=== PATIENT | female | born 1970 | race Two or more races ===

== ENCOUNTER 2019-12-06 13:07 | Emergency (ER) | payer OTHER, SELFPAY ==
[2019-12-06 13:18] VITALS: BP 115/74; PULSE 77; RESP 14; TEMP 36.4; O2SAT 100
--- NOTE | 2019-12-06 13:33 | ED.URI ---
HPI - URI/Sore Throat General Chief Complaint: Upper Respiratory Infection Stated Complaint: ear pain and scratchy throat Time Seen by Provider: 12/06/19 13:33 Source: patient and family Mode of arrival: ambulatory Limitations: no limitations History of Present Illness HPI Narrative: Patient presents with right ear pain. Patient states she has clear drainage from the ear at times. Patient has been using [id number] eardrops for pain which have not helped patient also states she is taking DayQuil for her respiratory symptoms which has not helped much. No fever no shortness of breath no chest pain normally healthy individual. Related Data Allergies Allergy/AdvReac Type Severity Reaction Status Date / Time No Known Allergies Allergy Verified 12/06/19 13:25 Review of Systems Review of Systems: Narrative: CONSTITUTIONAL: Denies chills, or sweats. Reports fever and generalized body aches EYES: Denies visual changes, redness, or discharge. ENT: Denies otalgia. Reports nasal congestion runny nose and sore throat CARDIOVASCULAR: Denies chest pain, palpitations, or edema. RESPIRATORY: Denies dyspnea. Reports occasional cough GASTROINTESTINAL: Denies abdominal pain, nausea, vomiting, or diarrhea. GENITOURINARY: Denies dysuria or hematuria. SKIN: Denies rash or itching. MUSCULOSKELETAL: Denies back pain, joint pain, or myalgia. Reports generalized body aches NEUROLOGIC: Denies headache, numbness, or weakness. PSYCHIATRIC: Denies anxiety or depression. PMFSH Comments At time of signature, agree with nursing past medical, surgical, social and family history. There is no relevant family history pertinent to the presenting complaint Exam Narrative: Exam Narrative: The patient is a well-developed, well-nourished in no acute distress. SKIN: Skin is warm and dry without erythema, swelling or exudate. There is good turgor. No tenting. HEAD: Atraumatic. Normocephalic. No temporal or scalp tenderness. EYES: Moist and bright. Sclera and conjunctivae normal. No discharge. PERRLA. Extraocular motions intact. Gross visual acuity intact. EARS: Pinna is normal shape and contour. Clear external auditory canals. Left TM pearly pierce with good cone of light, no erythema or suppuration. Bilateral cerumen noted no gross hearing deficit. Right TM opaque with moderate erythremia to canal NOSE: pink, moist mucosa with good air movement. Clear rhinorrhea without nasal flaring. Septum midline. Mouth: moist mucous membranes. THROAT; mild erythema noted to posterior oropharynx with moderate postnasal drainage. Without exudate or ulceration.. Uvula midline. Normal movement of soft palate. NECK: Supple and nontender with full range of motion without discomfort. No meningeal signs. LUNGS: Equal and bilateral breath sounds without wheezes, rales or rhonchi. CHEST: The chest wall is without retractions or use of accessory muscles. HEART: Has a regular rate and rhythm without murmur, gallops, click or rub. ABDOMEN: Soft, nontender with positive active bowel sounds. No rebound tenderness. EXTREMITIES: Without cyanosis, clubbing or edema. Equal 2+ distal pulses and 2 second capillary refill noted. NEUROLOGIC: alert, active, . The patient moves all extremities with normal muscle strength. Normal muscle tone is noted. Normal coordination is noted. NO focal neurological findings noted. Course Vital Signs Vital signs: Vital Signs Temperature 36.4 C 12/06/19 13:18 Pulse Rate 77 12/06/19 13:18 Respiratory Rate 14 12/06/19 13:18 Blood Pressure 115/74 12/06/19 13:18 Pulse Oximetry 100 12/06/19 13:18 Temperature 36.4 C 12/06/19 13:18 Pulse Rate 77 12/06/19 13:18 Respiratory Rate 14 12/06/19 13:18 Blood Pressure 115/74 12/06/19 13:18 Pulse Oximetry 100 12/06/19 13:18 MDM - URI/Sore Throat Differential Diagnosis Differential diagnosis: Likely upper respiratory infection, croup, otitis media, sinusitis, viral infection, bronchitis, i
== END 2019-12-06 13:42 | disposition home or self-care (01) ==
PROVIDERS: Emergency Provider Nurse Practitioner Family
DX: H66.91 Otitis media, unspecified, right ear (principal); J06.9 Acute upper respiratory infection, unspecified
CPT/HCPCS: 99213; G0463

== ENCOUNTER 2020-02-15 15:18 | Emergency (ER) | payer OTHER, SELFPAY ==
[2020-02-15 15:22] VITALS: BP 135/73; PULSE 72; RESP 16; TEMP 37.4; O2SAT 100
--- NOTE | 2020-02-15 15:36 | ED.EYEPROB ---
HPI - Eye Problem General Chief complaint: Eye Problems Stated complaint: right eye Time Seen by Provider: 02/15/20 15:29 Source: patient and RN notes reviewed Mode of arrival: ambulatory Limitations: no limitations History of Present Illness HPI Narrative: Patient presents today complaining of redness to her right eye that was noted this morning. Denies any recent illness, pain, itchiness, drainage from the eye, matting of the eyelashes. Denies vision changes. She has tried no [id number] interventions prior to arrival. Denies any recent coughing, sneezing, straining, constipation, heavy lifting. chief complaint: eye redness Related Data Home Medications Medication Instructions Recorded Confirmed No Home Medications 02/15/20 02/15/20 Allergies Allergy/AdvReac Type Severity Reaction Status Date / Time No Known Allergies Allergy Verified 02/15/20 15:33 Review of Systems Review of Systems: Narrative: CONSTITUTIONAL: Denies body aches, fever, chills, or sweats. EYES: Denies visual changes, or discharge.+ Right eye redness ENT: Denies rhinorrhea, congestion, sore throat, or otalgia. CARDIOVASCULAR: Denies chest pain, palpitations, or edema. RESPIRATORY: Denies cough or dyspnea. GASTROINTESTINAL: Denies abdominal pain, nausea, vomiting, or diarrhea. GENITOURINARY: Denies dysuria or hematuria. SKIN: Denies rash, itching, or wounds. MUSCULOSKELETAL: Denies back pain, joint pain, or myalgia. NEUROLOGIC: Denies headache, numbness, tingling, or weakness. PSYCH: Denies depression or anxiety. PMFSH Comments At time of signature, I have reviewed and agree with nursing past medical, surgical, social and family history unless otherwise noted. Please see nursing chart for further information. There is no relevant family history pertinent to the presenting complaint Exam Narrative: Exam Narrative: GENERAL: Well-appearing, well-nourished, and in no acute distress. HEAD: Normocephalic, atraumatic. EYES: EOMI. PERRL. Left eye normal. Lids and lashes normal bilaterally. Right lateral mild subconjunctival hemorrhage. ENT: Mucous membranes pink and moist. NECK: Normal AROM. CHEST: No respiratory distress. EXTREMITIES: Normal range of motion. No edema. SKIN: Warm, dry, no rash. Capillary refill normal. Normal skin turgor. NEURO: No focal deficits. Alert and oriented x3. Gait steady. PSYCH: Normal affect. No signs of depression or anxiety. Course Vital Signs Vital signs: Vital Signs Temperature 99.3 F 02/15/20 15:22 Pulse Rate 72 02/15/20 15:22 Respiratory Rate 16 02/15/20 15:22 Blood Pressure 135/73 02/15/20 15:22 Pulse Oximetry 100 02/15/20 15:22 Temperature 99.3 F 02/15/20 15:22 Pulse Rate 72 02/15/20 15:22 Respiratory Rate 16 02/15/20 15:22 Blood Pressure 135/73 02/15/20 15:22 Pulse Oximetry 100 02/15/20 15:22 Reviewed. Pt has been instructed to follow up with her PCP regarding her elevated blood pressure today. MDM - Eye Problem Differential Diagnosis Differential diagnosis: Likely corneal abrasion, conjunctivitis and subconjunctival hemorrhage Critical Care Time Critical Care Time Critical Care Time: No Discharge Plan Discharge Clinical Impression: Subconjunctival hemorrhage Qualifiers: Laterality: right Qualified Code(s): H11.31 - Conjunctival hemorrhage, right eye Patient Disposition: Home, Self-Care Condition: Stable Instructions: Subconjunctival Hemorrhage (ED) Additional Instructions: The redness in your eye will resolve on its own. Do not rub it or scratch it. Follow-up with your PCP with any concerns. Your blood pressure was elevated above 120/80 today at Urgent Care. This puts you above the threshold for follow up. Please schedule a followup visit with your personal physician as soon as possible, for further evaluation and treatment. Even blood pressure exceeding 120/80 may indicate pre-hypertension. Patient Language: E
== END 2020-02-15 15:40 | disposition home or self-care (01) ==
PROVIDERS: Emergency Provider Nurse Practitioner
DX: H11.31 Conjunctival hemorrhage, right eye (principal)
CPT/HCPCS: 99212; G0463

== ENCOUNTER 2021-03-20 09:18 | Emergency (ER) | payer OTHER, SELFPAY ==
[2021-03-20 09:26] VITALS: BP 138/87; PULSE 84; RESP 14; TEMP 37.3; O2SAT 98
--- NOTE | 2021-03-20 09:43 | ED.GENADULT ---
HPI - General Adult General Chief complaint: Extremity Problem,Nontraumatic Stated complaint: Left Shoulder Pain Time Seen by Provider: 03/20/21 09:29 Source: patient and family Mode of arrival: ambulatory Limitations: no limitations History of Present Illness HPI narrative: Patient is 50 years old white female presents with pain left upper back started 4 days ago. 1 day later was seen at [facility] and received ibuprofen and Flexeril with negative x-ray of the left shoulder. Patient report that she is not getting better. Patient denies any fever, chills, nausea, vomiting, chest pain, shortness of breath. Patient is healthy otherwise does not take medicine, does not smoke or drink or uses drugs. Patient works as a freelance designer at [employer] Related Data Home Medications Medication Instructions Recorded Confirmed cyclobenzaprine mg 03/20/21 ibuprofen 03/20/21 Allergies Allergy/AdvReac Type Severity Reaction Status Date / Time No Known Allergies Allergy Verified 02/15/20 15:33 Review of Systems Review of Systems: Narrative: CONSTITUTIONAL: Denies fever, chills, or sweats. EYES: Denies visual changes, redness, or discharge. ENT: Denies rhinorrhea, congestion, sore throat, or otalgia. CARDIOVASCULAR: Denies chest pain, palpitations, or edema. RESPIRATORY: Denies cough or dyspnea. GASTROINTESTINAL: Denies abdominal pain, nausea, vomiting, or diarrhea. GENITOURINARY: Denies dysuria or hematuria. SKIN: Denies rash or itching. MUSCULOSKELETAL: Denies back pain, joint pain, or myalgia. NEUROLOGIC: Denies headache, numbness, or weakness. PSYCHIATRIC: Denies anxiety or depression. Exam Narrative: Exam Narrative: General appearance: Well-developed, well-nourished Skin: Normal color Head: Normocephalic, nontraumatic Eyes: Clear conjunctiva ENT: Oropharynx normal, ears normal, nose normal Neck: Supple, nontender Chest and respiratory: Airway patent, no respiratory distress, no accessory muscle use Heart: Regular rate/rhythm Abdomen: Soft, nontender, no organomegaly, quiet bowel sounds Vascular: Normal peripheral pulses, normal capillary refill. Musculoskeletal: Left shoulder showed normal range of motion, no bruises, no swelling, no limitation, no warmth or deformity. Mild to moderate tenderness left upper back close to the midline, blisterlike rash at that area consistent with the beginning of shingles Neurologic: Alert and oriented ?3, [employer] is normal as tested, no gross motor deficit Course Course Emergency Course: Stable Vital Signs Vital signs: Vital Signs Temperature 37.3 C 03/20/21 09:26 Pulse Rate 84 03/20/21 09:26 Respiratory Rate 14 03/20/21 09:26 Blood Pressure 138/87 03/20/21 09:26 Pulse Oximetry 98 03/20/21 09:26 Temperature 37.3 C 03/20/21 09:26 Pulse Rate 84 03/20/21 09:26 Respiratory Rate 14 03/20/21 09:26 Blood Pressure 138/87 03/20/21 09:26 Pulse Oximetry 98 03/20/21 09:26 Medical Decision Making MDM Narrative Medical decision making narrative: Shingles is my concern. Toradol 60 mg IM ordered. Patient will be discharged on Valtrex. Differential Diagnosis Differential Diagnosis: Muscular pain, shingles Vital Signs Vital Signs: Vital Signs Temperature 37.3 C 03/20/21 09:26 Pulse Rate 84 03/20/21 09:26 Respiratory Rate 14 03/20/21 09:26 Blood Pressure 138/87 03/20/21 09:26 Pulse Oximetry 98 03/20/21 09:26 Temperature 37.3 C 03/20/21 09:26 Pulse Rate 84 03/20/21 09:26 Respiratory Rate 14 03/20/21 09:26 Blood Pressure 138/87 03/20/21 09:26 Pulse Oximetry 98 03/20/21 09:26 Critical Care Time Critical Care Time Critical Care Time:
[2021-03-20 09:55] LABS: Glucose Point of Care 92 mg/dl (65-105)
[2021-03-20 10:10] VITALS: BP 121/84; PULSE 86; RESP 16; O2SAT 98
== END 2021-03-20 10:09 | disposition home or self-care (01) ==
LOC: ANHED 10:00
PROVIDERS: Emergency Provider Emergency Medicine
DX: B02.9 Zoster without complications (principal)
CPT/HCPCS: 82948; 99283

== ENCOUNTER 2021-10-16 09:26 | Emergency (ER) | payer OTHER, SELFPAY ==
[2021-10-16 09:33] VITALS: BP 136/82; PULSE 88; RESP 14; TEMP 37.7; O2SAT 98
--- NOTE | 2021-10-16 10:11 | ED.URI ---
HPI - URI/Sore Throat General Chief Complaint: Upper Respiratory Infection Stated Complaint: sore throat/ear pain Time Seen by Provider: 10/16/21 10:11 Source: patient and family History of Present Illness HPI Narrative: Patient comes in with 3-day history of chills fever cough bilateral ear pain and nasal congestion. No shortness of breath and no chest pain. Patient has not vaccinated for COVID-19 and states that no one else in her house is feeling bad. Patient reports good fluid intake and is taking ibuprofen and Tylenol as needed for body aches. MD elicited complaint: fever, sore throat and nasal congestion Related Data Allergies Allergy/AdvReac Type Severity Reaction Status Date / Time No Known Allergies Allergy Verified 02/15/20 15:33 Review of Systems Review of Systems: CONSTITUTIONAL: Denies chills, or sweats. Reports fever and generalized body aches EYES: Denies visual changes, redness, or discharge. ENT: Denies otalgia. Reports nasal congestion runny nose and sore throat CARDIOVASCULAR: Denies chest pain, palpitations, or edema. RESPIRATORY: Denies dyspnea. Reports occasional cough GASTROINTESTINAL: Denies abdominal pain, nausea, vomiting, or diarrhea. GENITOURINARY: Denies dysuria or hematuria. SKIN: Denies rash or itching. MUSCULOSKELETAL: Denies back pain, joint pain, or myalgia. Reports generalized body aches NEUROLOGIC: Denies headache, numbness, or weakness. PSYCHIATRIC: Denies anxiety or depression. PMFSH Comments At time of signature, agree with nursing past medical, surgical, social and family history. There is no relevant family history pertinent to the presenting complaint Exam Narrative: The patient is a well-developed, well-nourished in no acute distress. SKIN: Skin is warm and dry without erythema, swelling or exudate. There is good turgor. No tenting. HEAD: Atraumatic. Normocephalic. No temporal or scalp tenderness. EYES: Moist and bright. Sclera and conjunctivae normal. No discharge. PERRLA. Extraocular motions intact. Gross visual acuity intact. EARS: Pinna is normal shape and contour. Clear external auditory canals. TM pearly pierce with good cone of light, no erythema or suppuration. Bilateral cerumen noted no gross hearing deficit. NOSE: pink, moist mucosa with good air movement. Clear rhinorrhea without nasal flaring. Septum midline. Mouth: moist mucous membranes. THROAT; mild erythema noted to posterior oropharynx with moderate postnasal drainage. Without exudate or ulceration.. Uvula midline. Normal movement of soft palate. NECK: Supple and nontender with full range of motion without discomfort. No meningeal signs. LUNGS: Equal and bilateral breath sounds without wheezes, rales or rhonchi. CHEST: The chest wall is without retractions or use of accessory muscles. HEART: Has a regular rate and rhythm without murmur, gallops, click or rub. ABDOMEN: Soft, nontender with positive active bowel sounds. No rebound tenderness. EXTREMITIES: Without cyanosis, clubbing or edema. Equal 2+ distal pulses and 2 second capillary refill noted. NEUROLOGIC: alert, active, . The patient moves all extremities with normal muscle strength. Normal muscle tone is noted. Normal coordination is noted. NO focal neurological findings noted. Course Course Level of Care: Express Care Visit Vital Signs Vital signs: Vital Signs Temperature 37.7 C H 10/16/21 09:33 Pulse Rate 88 10/16/21 09:33 Respiratory Rate 14 10/16/21 09:33 Blood Pressure 136/82 10/16/21 09:33 Pulse Oximetry 98 10/16/21 09:33 Temperature 37.7 C H 10/16/21 09:33 Pulse Rate 88 10/16/21 09:33 Respiratory Rate 14 10/16/21 09:33 Blood Pressure 136/82 10/16/21 09:33 Pulse Oximetry 98 10/16/21 09:33 Please GERA schedule a followup visit with your personal physician for further evaluation and treatment. Including recheck and discussion of your blood pressure. If your symptoms persist, change or worsen significantly before you ca
== END 2021-10-16 10:29 | disposition home or self-care (01) ==
PROVIDERS: Emergency Provider Nurse Practitioner Family
DX: U07.1 COVID-19 (principal)
CPT/HCPCS: 87081; 87426; 87804; 87880; 99213; C9803; G0463

== ENCOUNTER 2022-06-16 15:13 | Emergency (ER) | payer OTHER, SELFPAY ==
[2022-06-16 15:20] VITALS: BP 144/66; PULSE 87; RESP 14; TEMP 36.7; O2SAT 100
--- NOTE | 2022-06-16 15:29 | ED.FEMALEGU ---
HPI - Female Genitourinary General Chief complaint: Urogenital-Female Stated complaint: Vaginal Issue Time Seen by Provider: 06/16/22 15:41 Source: patient and RN notes reviewed Mode of arrival: ambulatory Limitations: no limitations History of Present Illness HPI Narrative: 51 y/o female presented for concern of due to no menstrual cycle since 03/25/22. Endorses irregular cycles for over one year. She has taken several home tests which have been negative. Denies abdominal pain, nausea, vomiting, diarrhea, dysuria, hematuria, flank pain, fever or chills. Related Data Home Medications Medication Instructions Recorded Confirmed No Home Medications 06/16/22 06/16/22 Allergies Allergy/AdvReac Type Severity Reaction Status Date / Time No Known Allergies Allergy Verified 06/16/22 15:30 Review of Systems Review of Systems: CONSTITUTIONAL: Denies body aches, fever, chills, or sweats. CARDIOVASCULAR: Denies chest pain, palpitations, or edema. RESPIRATORY: Denies cough or dyspnea. GASTROINTESTINAL: Denies abdominal pain, nausea, vomiting, or diarrhea. GENITOURINARY:denies dysuria, frequency, urgency, hematuria, flank pain SKIN: Denies rash, itching, or wounds. MUSCULOSKELETAL: Denies back pain or myalgia. PMFSH Comments At time of signature, I have reviewed and agree with nursing past medical, surgical, social and family history unless otherwise noted. Please see nursing chart for further information. There is no relevant family history pertinent to the presenting complaint Exam Narrative: GENERAL: Well-appearing ENT: Mucous membranes pink and moist. CHEST: Clear to auscultation. HEART: Regular rate and rhythm. ABDOMEN: Soft, nontender, nondistended, normal active bowel sounds. No CVA tenderness SKIN: Warm, dry, no rash. NEURO: Alert and oriented x3. Gait steady. Course Course Emergency Course: Patient is aware of diagnosis, understands and agrees to treatment plan. Anticipatory guidance given. Patient agrees to follow-up as directed and is aware of reasons to seek care at the emergency department. Portions of this record may have been created with voice recognition software Level of Care: Express Care Visit Vital Signs Vital signs: Vital Signs Temperature 98.0 F 06/16/22 15:20 Pulse Rate 87 06/16/22 15:20 Respiratory Rate 14 06/16/22 15:20 Blood Pressure 144/66 H 06/16/22 15:20 Pulse Oximetry 100 06/16/22 15:20 Oxygen Delivery Room Air 06/16/22 15:20 Temperature 98.0 F 06/16/22 15:20 Pulse Rate 87 06/16/22 15:20 Respiratory Rate 14 06/16/22 15:20 Blood Pressure 144/66 H 06/16/22 15:20 Pulse Oximetry 100 06/16/22 15:20 Oxygen Delivery Room Air 06/16/22 15:20 Reviewed MDM - Female Genitourinary MDM Narrative Medical decision making narrative: Urine preg negative, reviewed results at length with pt. Discussed possible perimenopause. Advised f/u with obgyn. Advised supportive measures and signs/symptoms to go to the ER. Pt is appropriate for outpt treatment and f/u. Differential Diagnosis Differential diagnosis: Likely urinary tract infection and other (menopause) Lab Data Labs: UCG Bedside Result Negative Reference Range: Negative Discharge Plan Discharge Clinical Impression: Irregular menstrual cycle Patient Disposition: Home, Self-Care Condition: Stable Instructions: Antibiotic Form Additional Instructions: follow up with primary care provider and ObGyn in 2 weeks. Go to the ER for worsening symptoms or concerns Prescriptions: No Action No Home Medications Follow-up/Referrals: PHYSICIAN,SQUAD LEADER [Primary Care Provider] - Juliann Dos Santos MD [Physician] - Time of Disposition: 15:48
== END 2022-06-16 15:50 | disposition home or self-care (01) ==
PROVIDERS: Emergency Provider Nurse Practitioner Family
DX: N92.6 Irregular menstruation, unspecified (principal)
CPT/HCPCS: 81025; 99212; G0463

== ENCOUNTER 2022-12-09 15:43 | Emergency (ER) | payer OTHER, SELFPAY ==
[2022-12-09 15:48] VITALS: BP 137/85; PULSE 83; RESP 16; TEMP 37.2; O2SAT 100
--- NOTE | 2022-12-09 15:54 | ED.URI ---
HPI - URI/Sore Throat General Chief Complaint: Upper Respiratory Infection Stated Complaint: throat and ears nausea Source: patient and RN notes reviewed History of Present Illness HPI Narrative: 52 yo F presents to urgent care with complaints of sore throat, right ear pain, slight WOODY, cough, chest tightness, and some congestion x 2 days. Pt also reporting right lower dental pain and gum swelling x 2 days. Denies any V/D, chest pain, SOB, fevers, chills. Related Data Allergies Allergy/AdvReac Type Severity Reaction Status Date / Time No Known Allergies Allergy Verified 12/09/22 15:53 Review of Systems Review of Systems: CONSTITUTIONAL: Denies fever, chills, or sweats. EYES: Denies visual changes, redness, or discharge. ENT: otalgia and sore throat CARDIOVASCULAR: Denies chest pain, palpitations, or edema. RESPIRATORY: cough GASTROINTESTINAL: Denies abdominal pain, nausea, vomiting, or diarrhea. GENITOURINARY: Denies dysuria or hematuria. SKIN: Denies rash or itching. MUSCULOSKELETAL: Denies back pain, joint pain, or myalgia. NEUROLOGIC: WOODY PMFSH Comments At the time of my signature, I reviewed and agree with the nursing past medical, surgical, social, and family history. There is no relevant family history pertinent to the patient complaint. Exam Narrative: GENERAL: This is a well-nourished, well-developed patient, in no apparent distress. HEAD: normocephalic, atraumatic. EYES: PERRL. Sclera clear/white. Vision is grossly intact. EARS: External ears normal, auditory canals clear and without drainage, TMs normal without perforation. Hearing grossly intact. NOSE: External nose normal with no obvious nasal discharge, nares without redness, no rhinorrhea. THROAT: Mucous membranes moist, posterior pharynx clear. NECK: Neck supple, non-tender without lymphadenopathy, masses or thyromegaly. CARDIOVASCULAR: Regular rate and rhythm without murmurs, gallops, or rubs. RESPIRATORY: Clear to auscultation. Breath sounds equal bilaterally. No wheezes, rales, or rhonchi. GASTROINTESTINAL: Abdomen soft, non-tender, nondistended. Bowel sounds are active. No hepato-splenomegaly, or palpable masses. No guarding. SKIN: warm, intact with no suspicious lesions or rash, good texture and turgor. NEURO: awake, alert, and oriented to person, place and time. There were no obvious focal neurologic abnormalities. MOUTH: Gum swelling noted adjacent to tooth #1. No exudate from area. Course Course Level of Care: Express Care Visit Vital Signs Vital signs: Vital Signs Temperature 98.9 F 12/09/22 15:48 Pulse Rate 83 12/09/22 15:48 Respiratory Rate 16 12/09/22 15:48 Blood Pressure 137/85 12/09/22 15:48 Pulse Oximetry 100 12/09/22 15:48 Oxygen Delivery Room Air 12/09/22 15:48 Temperature 98.9 F 12/09/22 15:48 Pulse Rate 83 12/09/22 15:48 Respiratory Rate 16 12/09/22 15:48 Blood Pressure 137/85 12/09/22 15:48 Pulse Oximetry 100 12/09/22 15:48 Oxygen Delivery Room Air 12/09/22 15:48 Reviewed MDM - URI/Sore Throat MDM Narrative Medical decision making narrative: May call Prabha @ the [address] [address] hrs: Mon-Fri 8:30-5:00 Sat 8-noon [facility] [phone] [place], [place] Viral illness may last between 7-12days; antibiotic is NOT recommended at this time. Recommend antihistamine such as Benadryl at night time and Claritin/Zyrtec/Marleny during the day. Increase your Vitamin C intake. Also, recommend symptomatic treatment includes: rest, fluids, increase humidity of the air at home with a humidifier in the bedroom. Recommend Acetaminophen or nonsteroidal anti-inflammatory agents(NSAIDs) as directed in the bottle to reduce fever and/pain/headache. Avoid smoking/second-hand smoke. Limit visits to areas with large crowds. Frequent hand washing or hand cement paver is one of the best ways to pre
== END 2022-12-09 16:12 | disposition home or self-care (01) ==
PROVIDERS: Emergency Provider Nurse Practitioner Family; PCP Internal Medicine
DX: K04.7 Periapical abscess without sinus (principal); J06.9 Acute upper respiratory infection, unspecified
CPT/HCPCS: 99213; G0463

== ENCOUNTER 2023-06-18 08:39 | Emergency (ER) | payer OTHER, SELFPAY ==
[2023-06-18 08:48] VITALS: BP 103/71; PULSE 85; RESP 20; TEMP 36.8; O2SAT 98
--- NOTE | 2023-06-18 09:12 | ED.URI ---
HPI - URI/Sore Throat General Stated Complaint: cold/ear/throat Time Seen by Provider: 06/18/23 09:12 Source: patient and RN notes reviewed Mode of arrival: ambulatory Limitations: no limitations History of Present Illness HPI Narrative: 52-year-old female presented for complaint of headache, body aches, sinus pressure/congestion, cough, sore throat, right ear pain, fever/chills. onset 2 days. Taking DayQuil and NyQuil. Denies known sick contacts, but works with the public. Denies sob, wheezing, n/v/d. MD elicited complaint: cough Related Data Home Medications Medication Instructions Recorded Confirmed No Home Medications 06/18/23 06/18/23 Allergies Allergy/AdvReac Type Severity Reaction Status Date / Time No Known Allergies Allergy Verified 06/18/23 09:13 Review of Systems Review of Systems: CONSTITUTIONAL: Endorses malaise, chills, sweats, fever EYES: Denies visual changes, redness, or discharge ENT: Reports rhinorrhea, congestion, sinus pain, Right otalgia, sore throat CARDIOVASCULAR: Denies chest pain, palpitations, edema RESPIRATORY: Reports cough, post nasal drainage. Denies dyspnea GASTROINTESTINAL: Denies abdominal pain, nausea, vomiting, diarrhea SKIN: Denies rash or itching MUSCULOSKELETAL: Endorses myalgia NEUROLOGIC: reports headache PMFSH Past Medical History Medical History (Updated 06/18/23 @ 09:22 by Kate Trevizo APRN) No pertinent past medical history Exam Narrative: GENERAL: Ill-appearing, nontoxic no acute distress. HEAD: Normocephalic EYES: PERRLA, conjunctivae clear ENT: Mucous membranes moist. TMs pearly culver with dull light reflex bilaterally; no tragal tenderness. Oropharynx erythematous without lesions or exudate, no drooling, no hoarseness, no trismus, uvula midline. No tripod positioning, muffled voice, soft palate or pharyngeal wall bulging NECK: Supple. No lymphadenopathy CHEST: Clear to auscultation, breath sounds equal. No wheezing, rhonchi, rales, or stridor. No respiratory distress, speaks in full sentences. HEART: Regular rate and rhythm. No murmur heard. SKIN: Warm, dry, no rash. NEURO: Alert and oriented x3. PSYCH: Normal mood and affect Course Course Emergency Course: Patient is aware of diagnosis, understands and agrees to treatment plan. Anticipatory guidance given. Patient agrees to follow-up as directed and is aware of reasons to seek care at the emergency department. Portions of this record may have been created with voice recognition software Level of Care: Express Care Visit Vital Signs Vital signs: Vital Signs Temperature 98.3 F 06/18/23 08:48 Pulse Rate 85 06/18/23 08:48 Respiratory Rate 20 06/18/23 08:48 Blood Pressure 103/71 06/18/23 08:48 Pulse Oximetry 98 06/18/23 08:48 Oxygen Delivery Room Air 06/18/23 08:48 Temperature 98.3 F 06/18/23 08:48 Pulse Rate 85 06/18/23 08:48 Respiratory Rate 20 06/18/23 08:48 Blood Pressure 103/71 06/18/23 08:48 Pulse Oximetry 98 06/18/23 08:48 Oxygen Delivery Room Air 06/18/23 08:48 reviewed MDM - URI/Sore Throat MDM Narrative Medical decision making narrative: COVID positive. Discussed physical exam findings. Advised supportive measures and signs/symptoms to go to the ER. Pt is appropriate for outpt treatment and f/u. Differential Diagnosis Differential diagnosis: Likely upper respiratory infection, sinusitis and viral infection Discharge Plan Discharge Clinical Impression: COVID-19 Patient Disposition: Home, Self-Care Condition: Stable Instructions: Antibiotic Form Additional Instructions: Your rapid COVID test was positive today. The following recommendations have been made by the CDC and local Health Departments, regarding COVID-19: -Those individuals with mild cases of COVID-19 can generally be discontinued from isolation 5 days AFTER the onset of symptoms AND the resolution of fever for 24hrs (without the use of f
== END 2023-06-18 09:22 | disposition home or self-care (01) ==
PROVIDERS: Emergency Provider Nurse Practitioner Family
DX: U07.1 COVID-19 (principal)
CPT/HCPCS: 87081; 87426; 87880; 99213; C9803; G0463